=== PATIENT | male | born 1990 | race Caucasian/White ===

== ENCOUNTER 2023-10-23 22:47 | Emergency (ER) | payer BC ==
[~2023-10-23] VITALS: Ht 177.8 cm; Wt 72.7 kg
[2023-10-23 22:56] VITALS: TEMP 98.5
[2023-10-23 23:38] LABS: BASO # 0.1 K/mm3 (0.0-0.2); BASO % 0.5 % (0.0-2.0); EOS # 0.3 K/mm3 (0.0-0.7); EOS % 3.3 % (0.0-4.0); GRAN # 5.4 K/mm3 (1.4-6.5); GRAN % 55.4 % (42.2-75.2); HEMATOCRIT 45.1 % (42.0-52.0); HEMOGLOBIN 15.6 g/dl (13.5-18.0); LYMPH # 3.3 K/mm3 (1.2-3.4); LYMPH % 33.5 % (20.0-51.0); MEAN CELL VOLUME 89 fl (80.0-100.0); MEAN CORPUSCULAR HEMOGLOBIN 31 pg (27-31); MEAN CORPUSCULAR HGB CONC 35 g/dl (33.0-37.0); MEAN PLATELET VOLUME 9.4 fl (7.4-10.4); MONO # 0.7 K/mm3 (0.1-0.6); MONO % 7.1 % (1.7-9.3); PLATELET COUNT 336 K/mm3 (130-400); RED BLOOD COUNT 5.05 M/mm3 (4.20-5.60)
[2023-10-23] MEDS ORDERED: Ibuprofen 400 MG TAB PO ONE (23:45)
[2023-10-23] MEDS ORDERED: Acetaminophen 325 MG TAB PO ONE (23:45)
[2023-10-23 23:58] LABS: ALBUMIN 3.9 gm/dL (3.5-5.0); BILIRUBIN,TOTAL 0.7 mg/dL (0.2-1.2); CALCIUM 10.3 mg/dL (8.4-10.2); CREATININE, serum 1.04 mg/dL (0.72-1.25); POTASSIUM 3.6 mmol/L (3.5-4.5); TOTAL PROTEIN 7.6 gm/dL (6.2-8.1)
[2023-10-24 00:05] LABS: TROPONIN-I 0.105 ng/mL (0.00-0.033)
[2023-10-24] MEDS ORDERED: CLEOCIN HCL300 MG PO (00:35)
[2023-10-24] MEDS ORDERED: Clindamycin 150 MG CAP PO ONE (00:45)
[2023-10-24 01:10] VITALS: BP 118/67; PULSE 101
== END 2023-10-24 01:12 | disposition left against medical advice (07) ==
LOC: COL.ER 22:47
PROVIDERS: Nurse Practitioner Primary Care
DX: L03.114 Cellulitis of left upper limb (principal); R79.89 Other specified abnormal findings of blood chemistry; F17.210 Nicotine dependence, cigarettes, uncomplicated